=== PATIENT | female | born 1970 | race African-American/Black ===

== ENCOUNTER 2019-01-19 10:03 | Emergency (ER) | payer MEDICAID ==
[~2019-01-19] VITALS: Ht 175.3 cm; Wt 117.9 kg
[~2019-01-19 10:03] MED LIST: ACETAMINOPHEN-1 EAC1 ORAL; CYCLOBENZAPRINE10 MG ORAL; DICLOFENAC SODI50 MG ORAL; IBUPROFEN600 MG ORAL; IBUPROFEN800 MG ORAL; NORCO 5-325 TA1 EACH ORAL; ROBAXIN-750750 MG PO; TRAMADOL HCL50 MG ORAL
[2019-01-19 10:15] VITALS: BP 115/78
[2019-01-19] MEDS ORDERED: BENAZEPRIL HCL10 MG ORAL (10:18)
[2019-01-19] MEDS ORDERED: RISPERDAL0.25 MG ORAL (10:18)
[2019-01-19] MEDS ORDERED: BUPROPION XL150 MG ORAL (10:18)
--- NOTE | 2019-01-19 10:45 | Emergency Room Report ---
History of Present Illness General Chief Complaint: Palpitations Source: Patient Present Illness HPI Patient present with complaints of palpitation sensation She reports that she has had these for extended period time however today she felt more outpatient sensation she reports that her psychiatrist told her to get checked by her primary physician This was in November However she has not had a chance to Patient also seeing her primary physician monthly Denies any chest pain with it denies any vomiting or diarrhea Denies any change in medications recently denies any fevers Patient reports thyroid medical condition Allergies: Coded Allergies: NO KNOWN ALLERGIES (Unverified Allergy, Unknown, 09/30/15) Patient History Past Medical History: see triage record Pertinent Family History: none Last Menstrual Period: 1 year ago Reviewed Nursing Documentation: PMH: Agreed; PSxH: Agreed Nursing Documentation-PMH Past Medical History: No History, Except For Hx Hypertension: Yes History Of Psychiatric Problem: Yes - depression, schizophrenia Review of Systems All Other Systems: negative except mentioned in HPI Physical Exam Vital Signs Date Time Temp Pulse Resp B/P (MAP) Pulse Ox O2 Delivery O2 Flow Rate FiO2 01/19/19 10:14 97.0 120 18 131/86 99 Room Air Sp02 EP Interpretation: reviewed, normal General Appearance: well appearing, no apparent distress Head: normocephalic, atraumatic Eyes: bilateral eye PERRL, bilateral eye EOMI ENT: hearing grossly normal, normal pharynx, TMs + canals normal, uvula midline Neck: full range of motion, supple, no meningismus, no bony tend Respiratory: lungs clear, normal breath sounds, no rhonchi, no respiratory distress, no retraction, no accessory muscle use Cardiovascular #1: normal peripheral pulses, no edema, no gallop, no JVD, no murmur, tachycardia - 110 beats a minute Gastrointestinal: normal bowel sounds, non tender, soft, no mass, no organomegaly, non-distended, no guarding, no hernia, no pulsatile mass, no rebound Genitourinary: no CVA tenderness Musculoskeletal: normal inspection Neurologic: oriented x3, responsive, print support specialist III-XII nml as tested, motor strength/ tone normal, sensory intact Psychiatric: mood/affect normal Skin: normal color, no rash, warm/dry, palpation normal Lymphatic: normal inspection, no adenopathy Medical Decision Making Diagnostic Impression: Primary Impression: Palpitations ER Course Given the patient's history and presentation multiple differentials and consideration Patient's EKG does show a mildly tachycardic finding with heart rate of 107 Extensive blood work including thyroid studies and cardiac studies initiated All within normal limits Patient is on multiple medications I feel that she would benefit from evaluation of the medications provided by psychiatry and primary physician to evaluate further possible interaction Patient also could potentially benefit from altered monitoring and close outpatient follow-up Labs Test 01/19/19 10:30 White Blood Count 6.8 K/UL (4.8-10.8) Red Blood Count 5.07 M/UL (4.20-5.40) Hemoglobin 14.4 G/DL (12.0-16.0) Hematocrit 41.6 % (37.0-47.0) Mean Corpuscular Volume 82 FL (80-99) Mean Corpuscular Hemoglobin 28.4 PG (27.0-31.0) Mean Corpuscular Hemoglobin Concent 34.5 G/DL (32.0-36.0) Red Cell Distribution Width 13.1 % (11.6-14.8) Platelet Count 214 K/UL (150-450) Mean Platelet Volume 8.4 FL (6.5-10.1) Neutrophils (%) (Auto) 65.6 % (45.0-75.0) Lymphocytes (%) (Auto) 23.2 % (20.0-45.0) Monocytes (%) (Auto) 7.5 % (1.0-10.0) Eosinophils (%) (Auto) 2.2 % (0.0-3.0) Basophils (%) (Auto) 1.6 % (0.0-2.0) Urine Color Pale yellow Urine Appearance Clear Urine pH 5 (4.5-8.0) Urine Specific [place] 1.010 (1.005-1.035) Urine Protein Negative (NEGATIVE) Urine Glucose (UA) Negative (NEGATIVE) Urine Ketones Negative (NEGATIVE) Urine Blood Negative (NEGATIVE) Urine Nitrite Negative (NEGATIVE) Urine Bilirubin Negative (NEGATIVE) Urine Urobilinogen Normal MG/DL (0.0-1.0) Urine Leukocyte Esterase Negative (NEGATIVE) Sodium Level 138 MMOL/L (136-145) Potassium Level 4.5 MMOL/L (3.5-5.1) Chloride Level 101 MMOL/L (98-107) Carbon Dioxide Level 25 MMOL/L (21-32) Anion Gap 12 mmol/L (5-15) Blood Urea Nitrogen 19 mg/dL (7-18) Creatinine 0.9 MG/DL (0.55-1.30) Estimat Glomerular Filtration Rate > 60 mL/min (>60) Glucose Level 107 MG/DL (74-106) Calcium Level 9.7 MG/DL (8.5-10.1) Total Bilirubin 0.5 MG/DL (0.2-1.0) Aspartate Amino Transf (AST/SGOT) 43 U/L (15-37) Alanine Aminotransferase (ALT/SGPT) 73 U/L (12-78) Alkaline Phosphatase 105 U/L (46-116) Total Creatine Kinase 258 U/L (26-308) Creatine Kinase MB 2.6 NG/ML (0.0-3.6) Creatine Kinase MB Relative Index 1.0 Troponin I 0.000 ng/mL (0.000-0.056) Total Protein 8.3 G/DL (6.4-8.2) Albumin 4.3 G/DL (3.4-5.0) Globulin 4.0 g/dL Albumin/Globulin Ratio 1.1 (1.0-2.7) Lipase 132 U/L (73-393) Thyroid Stimulating Hormone (TSH) < 10.000 uiU/mL Free Thyroxine 0.94 NG/DL (0.76-1.46) Urine Opiates Screen Positive (NEGATIVE) Urine Barbiturates Screen Negative (NEGATIVE) Phencyclidine (PCP) Screen Negative (NEGATIVE) Urine Amphetamines Screen Negative (NEGATIVE) Urine Benzodiazepines Screen Negative (NEGATIVE) Urine Cocaine Screen Negative (NEGATIVE) Urine Marijuana (THC) Screen Negative (NEGATIVE) EKG Diagnostic Results Rate: tachycardiac Rhythm: other ST Segments: no acute changes Rhythm Strip Diag. Results EP Interpretation: yes Rate: 98 Rhythm: NSR, no PVC's, no ectopy Chest X-Ray Diagnostic Results Chest X-Ray Diagnostic Results : Chest X-Ray Ordered: Yes # of Views/Limited/Complete: 1 View Indication: Chest Pain EP Interpretation: Yes Interpretation: no consolidation, no effusion, no pneumothorax Impression: No acute disease Electronically Signed by: Surinder Jonas DO Last Vital Signs Date Time Temp Pulse Resp B/P (MAP) Pulse Ox O2 Delivery O2 Flow Rate FiO2 01/19/19 10:14 97.0 120 18 131/86 99 Room Air Status: improved Disposition: HOME, SELF-CARE Condition: Improved Additional Instructions: Patient is provided with the discharge instructions notified to follow up with primary doctor in the next 2-3 days otherwise return to the er with any worsening symptoms. Please note that this report is being documented using [employer] technology. This can lead to erroneous entry secondary to incorrect interpretation by the dictating instrument. Surinder Jonas DO Jan 19, 2019 10:45
[2019-01-19 10:51] LABS: APPEARANCE,URINE CLEAR; BILIRUBIN, URINE NEGATIVE (NEGATIVE); COLOR,URINE PALE YELLOW; GLUCOSE, URINE (UA) NEGATIVE (NEGATIVE); KETONES,URINE NEGATIVE (NEGATIVE); LEUKOCYTE ESTERASE ,URINE NEGATIVE (NEGATIVE); NITRITE,URINE NEGATIVE (NEGATIVE); PH,URINE 5 (4.5-8.0); PROTEIN,URINE NEGATIVE (NEGATIVE); UROBILINOGEN,URINE NORMAL MG/DL (0.0-1.0)
[2019-01-19 10:55] LABS: BASOPHILS % (AUTO) 1.6 % (0.0-2.0); EOSINOPHILS % (AUTO) 2.2 % (0.0-3.0); HEMATOCRIT 41.6 % (37.0-47.0); HEMOGLOBIN 14.4 G/DL (12.0-16.0); LYMPHOCYTES % (AUTO) 23.2 % (20.0-45.0); MEAN CORPUSCULAR VOLUME 82 FL (80-99); MONOCYTES % (AUTO) 7.5 % (1.0-10.0); NEUTROPHILS % (AUTO) 65.6 % (45.0-75.0); PLATELET COUNT 214 K/UL (150-450); RED BLOOD COUNT 5.07 M/UL (4.20-5.40); RED CELL DISTRIBUTION WIDTH 13.1 % (11.6-14.8); WHITE BLOOD COUNT 6.8 K/UL (4.8-10.8)
[2019-01-19 11:37] LABS: ANION GAP 12 mmol/L (5-15); BLOOD UREA NITROGEN 19 mg/dL (7-18); CALCIUM 9.7 MG/DL (8.5-10.1); CARBON DIOXIDE 25 MMOL/L (21-32); CHLORIDE 101 MMOL/L (98-107); CREATININE 0.9 MG/DL (0.55-1.30); POTASSIUM 4.5 MMOL/L (3.5-5.1); SODIUM 138 MMOL/L (136-145)
[2019-01-19 11:52] LABS: ALANINE AMINOTRANSFERASE 73 U/L (12-78); ALBUMIN 4.3 G/DL (3.4-5.0); ALBUMIN/GLOBULIN RATIO 1.1 (1.0-2.7); ALKALINE PHOSPHATASE 105 U/L (46-116); ASPARTATE AMINO TRANSFERASE 43 U/L (15-37); BILIRUBIN,TOTAL 0.5 MG/DL (0.2-1.0); CKMB 2.6 NG/ML (0.0-3.6); CREATINE KINASE 258 U/L (26-308)
[2019-01-19 12:00] VITALS: BP 121/80
[2019-01-19 12:37] VITALS: BP 121/69
== END 2019-01-19 12:37 | disposition home or self-care (01) ==
LOC: EMR 12:01
DX: R00.2 Palpitations (principal); I10 Essential (primary) hypertension; F32.9 Major depressive disorder, single episode, unspecified; F20.9 Schizophrenia, unspecified; R00.0 Tachycardia, unspecified
CPT/HCPCS: 36415; 71045; 80053; 80307; 81003; 82550; 82553; 83690; 84439; 84443; 84484; 85025; 93005; 99284

== ENCOUNTER 2019-06-09 12:11 | Emergency (ER) | payer MEDICAID ==
[~2019-06-09] VITALS: Ht 174 cm; Wt 117.9 kg
[~2019-06-09 12:11] MED LIST changes: +AMOXICILLIN500 MG ORAL; +BENADRYL50 MG ORAL; +BENAZEPRIL HCL10 MG ORAL; +BUPROPION HCL150 M3 ORAL; +BUPROPION XL150 MG ORAL; +DIET PILL; +FERROUS SULFAT324 MG PO; +HYDROCHLOROTHIA25 MG ORAL; +HYDROCORTISONE28 G5 TP; +IBUPROFEN600 MG PO; +IMODIUM2 MG ORAL; +METHOCARBAMOL500 MG ORAL; +METRONIDAZOLE500 MG ORAL; +RISPERDAL0.25 MG ORAL; +ZYPREXA10 MG ORAL
[2019-06-09 12:16] VITALS: BP 132/82
[2019-06-09] MEDS ORDERED: GABAPENTIN100 MG ORAL (12:16)
--- NOTE | 2019-06-09 12:16 | NUR ---
ED Nurse Note: pt walked in to ED due to right shoulder pain that radiated to right arm. no limited ROM noted. per pt, tripped and fell on concrete about month ago. no head injury. AAO x4. respirations even and non-labored noted. will wait for the further order.
--- NOTE | 2019-06-09 12:40 | NUR ---
HAND-OFF: Report given to GUME Gutiérrez.
[2019-06-09] MEDS ORDERED: IBUPROFEN600 MG ORAL (13:01)
[2019-06-09 13:11] VITALS: BP 128/80
--- NOTE | 2019-06-09 13:11 | NUR ---
ER DISCHARGE NOTE: Patient is cleared to be discharged per HUGH Miller, pt is aox4, on room air, with stable vital signs. pt was given dc and prescription instructions, pt was able to verbalize understanding, pt id band removed without complications. pt is able to ambulate with steady gait. pt took all belongings.
--- NOTE | 2019-06-09 21:56 | Emergency Room Report ---
History of Present Illness General Chief Complaint: Upper Extremity Injury Source: Patient, Medical Record Present Illness HPI Patient is a 49-year-old female presenting for right-sided shoulder pain for the past 1 month. She admits to falling onto the shoulder but does not remember how. Pain has continued and is a 9 out of 10 dull ache. Does not radiate. Worse with movement. She denies previous shoulder injury. She has been taking ibuprofen which has not been helping. She denies other symptoms including neck pain or stiffness, headache, dizziness, chest pain, shortness of breath, numbness or tingling Allergies: Coded Allergies: NO KNOWN ALLERGIES (Unverified Allergy, Unknown, 09/30/15) Patient History Past Medical History: see triage record Pertinent Family History: none Last Menstrual Period: several yrs ago Reviewed Nursing Documentation: PMH: Agreed; PSxH: Agreed Nursing Documentation-PMH Past Medical History: No History, Except For Hx Hypertension: Yes Review of Systems All Other Systems: negative except mentioned in HPI Physical Exam Vital Signs Date Time Temp Pulse Resp B/P (MAP) Pulse Ox O2 Delivery O2 Flow Rate FiO2 06/09/19 12:13 98.1 105 18 132/82 (99) 96 Room Air Sp02 EP Interpretation: reviewed, normal General Appearance: no apparent distress, alert, GCS 15, non-toxic Head: normocephalic, atraumatic Neck: full range of motion, no bony tend, supple/symm/no masses Respiratory: chest non-tender, lungs clear, normal breath sounds, speaking full sentences Cardiovascular #1: regular rate, rhythm, no edema Musculoskeletal: tender - R trapezius Neurologic: alert, oriented x3, responsive, motor strength/tone normal, sensory intact, speech normal Psychiatric: judgement/insight normal, memory normal, mood/affect normal, no suicidal/homicidal ideation Skin: no rash Procedures Splinting Splinting : Consent: Verbal Location: R arm sling Pre-Made Type: sling Pre-Proc Neuro Vasc Exam: normal Post-Proc Neuro Vasc Exam: normal Patient Tolerated: Well Medical Decision Making PA Attestation Dr. Shi is my supervising physician. Patient management was discussed with my supervising physician Diagnostic Impression: Primary Impression: Shoulder contusion Qualified Codes: S40.011A - Contusion of right shoulder, initial encounter ER Course Patient is a 49-year-old female presenting for right-sided shoulder pain for the past 1 month. Ddx considered include but not limited to sprain/strain, fracture, contusion PE: Vitals stable. NAD Neck: soft and supple. No midline tenderness or step-offs R shoulder: No obvious deformity. Full active range of motion is intact. Strength 5/5. Tenderness to palpation over the right trapezius only Right sided sling is placed in the patient is discharged home with ibuprofen. She is told to follow-up with primary doctor as soon as possible for further treatment ER precautions given Other X-Ray Diagnostic Results Other X-Ray Diagnostic Results : # of Views/Limited Vs Complete: 3 View, Complete Indication: Pain EP Interpretation: Yes HUGH Xray: Interpretation reviewed, by supervising MD, and agrees with findings. Interpretation: no dislocation, no soft tissue swelling, no fractures Impression: No acute disease Electronically Signed by: Paul Bosch PA-C Last Vital Signs Date Time Temp Pulse Resp B/P (MAP) Pulse Ox O2 Delivery O2 Flow Rate FiO2 06/09/19 13:11 98.0 100 14 128/80 97 Room Air Status: improved Disposition: HOME, SELF-CARE Condition: Improved Scripts Ibuprofen* (MOTRIN*) 600 Mg Tablet 600 MG ORAL Q8H PRN for For Pain, #30 TAB 0 Refills Prov: PAUL BOSCH 06/09/19 Referrals: NON PHYSICIAN (PCP) Patient Instructions: Shoulder Pain, Contusion Additional Instructions: I discussed my findings with the patient. All questions and concerns have been answered. Treatment and medication compliance have been addressed. I advised the patient that they need to follow up with PMD in 3-5 days. Return to ED if pain remains or worsens, numbness or tingling occurs, new rash is noticed, fever is noticed, or if needed for any reason. Patient verbalized understanding of discharge instructions. PAUL BOSCH Jun 09, 2019 21:56
--- NOTE | 2019-06-10 11:51 | Diagnostic Imaging Report ---
Indication: Right shoulder pain Technique: 3 views of the right shoulder Comparison: none Findings: No acute fractures. No dislocations. Joint spaces are preserved. There are mild degenerative changes of the acromioclavicular joint Impression: No acute process
== END 2019-06-09 13:11 | disposition home or self-care (01) ==
LOC: EMR 13:07
DX: S40.011A Contusion of right shoulder, initial encounter (principal); I10 Essential (primary) hypertension; W18.30XA Fall on same level, unspecified, initial encounter; Y92.9 Unspecified place or not applicable
CPT/HCPCS: 73030; Z7502; 99283

== ENCOUNTER 2019-07-28 12:36 | Emergency (ER) | payer MEDICAID ==
[~2019-07-28] VITALS: Ht 175.3 cm; Wt 117.0 kg
[~2019-07-28 12:36] MED LIST changes: +GABAPENTIN100 MG ORAL
[2019-07-28 13:00] VITALS: BP 123/84
--- NOTE | 2019-07-28 13:01 | NUR ---
ED Nurse Note: Patient walked in to ER from home due to Rt arm pain 10/10 radiates to Rt shoulder. Patient alert and oriented x4 and ambulatory. Skin clean and intact. Calm and cooperative. No acute distress noted at this moment. per pt, she has had this pain for a month but it got worse last night.
--- NOTE | 2019-07-28 13:21 | Emergency Room Report ---
History of Present Illness General Chief Complaint: Pain Source: Patient Present Illness HPI 49-year-old female who is morbidly obese and no other significant past medical history here complaining of chronic right shoulder pain x1 and half months. Patient was here at [facility] beginning of June 2019 after a fall and was diagnosed with shoulder contusion since x-ray was within normal limits. Patient did follow with primary care however has not mentioned the shoulder pain to him yet. Reports that starting last night she noticed increasing pain rating a 10 out of 10 with radiation to right forearm and fingers. Denies tingling and numbness. Patient points to around the shoulder bursa when complains of pain. No impingement sign is noted. Patient has full range of motion with minimal pain. Reports that she is right-handed and usually does a lot of housework. Denies any recent fall or injury. Has not taken any medication other than [id number] ibuprofen for pain relief. Denies chest pain, chest pain radiation, shortness of breath, palpitation, headache and dizziness and other associated symptoms. Allergies: Coded Allergies: NO KNOWN ALLERGIES (Unverified Allergy, Unknown, 09/30/15) Patient History Past Medical History: see triage record Past Surgical History: unable to obtain Pertinent Family History: none Last Menstrual Period: no period Now: No Immunizations: UTD Reviewed Nursing Documentation: PMH: Agreed; PSxH: Agreed Nursing Documentation-PMH Hx Hypertension: Yes Review of Systems All Other Systems: negative except mentioned in HPI Physical Exam Vital Signs Date Time Temp Pulse Resp B/P (MAP) Pulse Ox O2 Delivery O2 Flow Rate FiO2 07/28/19 12:46 97.7 112 17 123/84 (97) 94 Room Air Sp02 EP Interpretation: reviewed, normal General Appearance: no apparent distress, alert, GCS 15, non-toxic Head: normocephalic, atraumatic Eyes: bilateral eye normal inspection, bilateral eye PERRL ENT: hearing grossly normal, normal pharynx, no angioedema, normal voice Neck: full range of motion, supple, supple/symm/no masses Respiratory: chest non-tender, lungs clear, normal breath sounds, no rhonchi, no respiratory distress, no wheezing, speaking full sentences Cardiovascular #1: regular rate, rhythm, no edema, no murmur, normal capillary refill Cardiovascular #2: 2+ radial (R), 2+ radial (L) Gastrointestinal: normal bowel sounds, non tender, soft, non-distended, no guarding, no rebound Genitourinary: no CVA tenderness Musculoskeletal: back normal, digits/nails normal, gait/station normal, normal range of motion, non-tender, no calf tenderness, pelvis stable, other - No impingement sign noted Neurologic: alert, oriented x3, responsive, motor strength/tone normal, sensory intact, speech normal Psychiatric: judgement/insight normal, memory normal, mood/affect normal, no suicidal/homicidal ideation Skin: no rash Lymphatic: no adenopathy Medical Decision Making PA Attestation All my diagnosis and treatment plans were reviewed ad discussed with my supervising physician Dr. Yao Diagnostic Impression: Primary Impression: Bursitis, shoulder ER Course 49-year-old female who is morbidly obese and no other significant past medical history here complaining of chronic right shoulder pain x1 and half months. Patient was here at [facility] beginning of June 2019 after a fall and was diagnosed with shoulder contusion since x-ray was within normal limits. Patient did follow with primary care however has not mentioned the shoulder pain to him yet. Reports that starting last night she noticed increasing pain rating a 10 out of 10 with radiation to right forearm and fingers. Denies tingling and numbness. Patient points to around the shoulder bursa when complains of pain. No impingement sign is noted. Patient has full range of motion with minimal pain. Reports that she is right-handed and usually does a lot of housework. Denies any recent fall or injury. Has not taken any medication other than [id number] ibuprofen for pain relief. Denies chest pain, chest pain radiation, shortness of breath, palpitation, headache and dizziness and other associated symptoms. Ddx considered but are not limited to : Shoulder sprain versus strain versus fracture versus bursitis versus rotator cuff injury Vital signs: are WNL, pt. is afebrile H&PE are most consistent with: Bursitis of right shoulder ORDERS: Ibuprofen, lidocaine patch, Robaxin ED INTERVENTIONS: Toradol DISCHARGE: At this time pt. is stable for d/c to home. Will provide printed patient care instructions, and any necessary prescriptions. Care plan and follow up instructions have been discussed with the patient prior to discharge. Advised patient to follow with primary care provider for referral to physical therapy and [facility] or possible MRI of the shoulder needed. Low back pain and clinical presentation correlates with bursitis versus tendinitis. Treatment remains the same. Patient agrees with the above treatment. Last Vital Signs Date Time Temp Pulse Resp B/P (MAP) Pulse Ox O2 Delivery O2 Flow Rate FiO2 07/28/19 13:00 97.7 105 17 123/84 94 Room Air Disposition: HOME, SELF-CARE Condition: Stable Scripts Ibuprofen (Ibu) 800 Mg Tablet 800 MG PO TID, #21 TAB Prov: Rush Galicia 07/28/19 Lidocaine Patch* (Lidoderm Patch*) 1 Each Adh..patch 1 PATCH TOPIC DAILY, #7 PATCH 0 Refills Patch(es) may remain in place for up to 12 hours in any 24-hour period. Prov: Rush Galicia 07/28/19 Methocarbamol* (ROBAXIN-500*) 500 Mg Tablet 500 MG ORAL TID PRN for For Pain, #15 TAB 0 Refills Prov: Rush Galicia 07/28/19 Patient Instructions: Bursitis, [id number] Additional Instructions: Take medication will follow with your primary care provider for referral for physical therapy and orthopedic referral. If worsening symptoms return to emergency room Rush Galicia Jul 28, 2019 13:21
[2019-07-28] MEDS ORDERED: ROBAXIN-500MG ORAL (13:22)
[2019-07-28] MEDS ORDERED: IBU800 MG PO (13:22)
[2019-07-28] MEDS ORDERED: LIDODERM700 M1 TOPIC (13:22)
[2019-07-28 13:29] VITALS: BP 129/84
[2019-07-28] MEDS ORDERED: Ketorolac 30mg Inj IM ONE (13:30)
--- NOTE | 2019-07-28 13:30 | NUR ---
ED Nurse Note: Pt cleared by health care Provider for discharge. DC instructions/prescription was given and explained to pt and verbalized understanding of teachings. All medical deviecs such as ID band removed. Pt is AAO x4, ambulatory and left with all personal belongings.
== END 2019-07-28 13:35 | disposition home or self-care (01) ==
LOC: EMR 13:20
DX: M75.51 Bursitis of right shoulder (principal); I10 Essential (primary) hypertension
CPT/HCPCS: 96372; J1885; Z7502; 99283